=== PATIENT | female | born 1960 | race African-American/Black ===

== ENCOUNTER 2021-01-11 10:07 | Emergency (ER) | payer BC ==
[2021-01-11 10:17] VITALS: BP 142/74; PULSE 65; TEMP 98.6; BMI 37.7
== END 2021-01-11 11:32 | disposition home or self-care (01) ==
LOC: JER 10:07
DX: J30.9 Allergic rhinitis, unspecified (principal); R51.9 Headache, unspecified; Z11.52 Encounter for screening for COVID-19
CPT/HCPCS: 99283-25; C9803; U0003; U0005